=== PATIENT | female | born 1975 | race Caucasian/White ===

== ENCOUNTER → 2017-08-08 | Outpatient (REF) | payer OTHER ==
[2017-08-08 18:22] LABS: MEAN CORPUSCULAR VOLUME 91.3 fl (80.0-96.0); RED CELL DISTRIBUTION WIDTH 12.5 % (11.5-14.5); WHITE BLOOD COUNT 11.3 10^3/uL (4.0-10.0)
[2017-08-08 18:49] LABS: ALBUMIN 3.6 GM/DL (3.2-5.2); ALBUMIN/GLOBULIN RATIO 1.03 (1.00-1.93); ALKALINE PHOSPHATASE 79 U/L (45-117); ALT/SGPT 17 U/L (12-78); ANION GAP 5 MEQ/L (8-16); AST/SGOT 7 U/L (15-37); BILIRUBIN,TOTAL 0.3 MG/DL (0.2-1.0); BLOOD UREA NITROGEN 13 MG/DL (7-18); CALCIUM LEVEL 8.7 MG/DL (8.5-10.1); CARBON DIOXIDE LEVEL 31 MEQ/L (21-32); CHLORIDE LEVEL 106 MEQ/L (98-107); CREATININE FOR GFR 0.84 MG/DL (0.55-1.02); FREE T4 1.11 NG/DL (0.76-1.46); GLOMERULAR FILTRATION RATE > 60.0 (>58); GLUCOSE, FASTING 73 MG/DL (70-105); SODIUM LEVEL 142 MEQ/L (136-145); TOTAL PROTEIN 7.1 GM/DL (6.4-8.2)
== END ==
LOC: M SFHCLERA 13:33
PROVIDERS: ATTEND Family Medicine
DX: F41.9 Anxiety disorder, unspecified (principal); A64 Unspecified sexually transmitted disease; B37.9 Candidiasis, unspecified; R63.4 Abnormal weight loss

== ENCOUNTER 2018-11-09 10:10 | Emergency (ER) | payer MEDICAID, OTHER ==
[~2018-11-09] VITALS: Ht 167.6 cm; Wt 68.2 kg
[2018-11-09] MEDS ORDERED: diazePAM 5 MG TAB PO ONE (10:45)
[2018-11-09] MEDS ORDERED: KETOROLAC 60 MG/2 ML VIAL (J1885) IM ONE (10:45)
--- NOTE | 2018-11-09 10:56 | REP ---
Head CT without contrast: History: None onset severe left sided headache. Comparison study: Comparison head CT study November 29, 2013. CT findings: Bone window settings demonstrate an intact bony calvarium. There is no evidence of skull fracture or incidental bony calvarial lesion. The visualized paranasal sinuses appear clear. No intraorbital abnormality is seen. On soft tissue window setting images; the lateral, third, and fourth ventricles are normal in size and position. Escobar-white differentiation pattern is normal above and below the tentorium. There are is no evidence of intracranial hemorrhage. No mass, edema, infarction, or midline shift is seen. No extra-axial fluid collection is appreciated. Impression: Negative noncontrast head CT. Electronically Signed by Rahat Hayes MD 11/09/2018 10:47 A
[2018-11-09] MEDS ORDERED: ROBA500T PO (12:02)
[2018-11-09] MEDS ORDERED: IBUP-1022 PO (12:02)
[2018-11-09 12:11] VITALS: BP 112/67
== END 2018-11-09 12:12 | disposition home or self-care (01) ==
LOC: M ED 10:10
DX: G44.209 Tension-type headache, unspecified, not intractable (principal); S16.1XXA Strain of muscle, fascia and tendon at neck level, initial encounter; X58.XXXA Exposure to other specified factors, initial encounter; Y92.9 Unspecified place or not applicable; Y93.9 Activity, unspecified; Y99.9 Unspecified external cause status; Z72.0 Tobacco use
CPT/HCPCS: 70450; 96372; 99283; J1885

== ENCOUNTER 2018-11-13 10:25 | Day surgery (SDC) | payer OTHER ==
[~2018-11-13] VITALS: Ht 167.6 cm; Wt 75.0 kg
[~2018-11-13 10:25] MED LIST: IBUP-1022 PO; ROBA500T PO
[2018-11-13] MEDS ORDERED: ONDANSETRON 4MG/2ML VIAL (J2405) IV ONE ×2 (10:45→16:00)
[2018-11-13] MEDS ORDERED: NS 1,000 ML IV ONE ×2 (10:45→13:30)
[2018-11-13 10:58] LABS: BASO # 0.1 10^3/uL (0.0-0.2); BASO % 0.7 % (0.0-1.0); EOS # 0.3 10^3/uL (0.0-0.50); EOS % 1.8 % (0.0-3.0); HEMATOCRIT 43.9 % (36.0-47.0); MEAN CORPUSCULAR HEMOGLOBIN 30.7 pg (27.0-33.0); MEAN CORPUSCULAR HGB CONC 34.2 g/dl (32.0-36.5); MONO % 5.5 % (0.0-5.0); NEUTROPHILS # 14.6 10^3/uL (1.8-7.7); NEUTROPHILS % 80.4 % (36.0-66.0); PLATELET COUNT, AUTOMATED 334 10^3/uL (150-450); RED BLOOD COUNT 4.88 10^6/uL (4.00-5.40); WHITE BLOOD COUNT 18.1 10^3/uL (4.0-10.0)
[2018-11-13 11:22] LABS: ALBUMIN 3.5 GM/DL (3.2-5.2); ALT/SGPT 21 U/L (12-78); AMYLASE 29 U/L (25-115); BILIRUBIN,DIRECT < 0.1 MG/DL (0.0-0.2); BILIRUBIN,TOTAL 0.2 MG/DL (0.2-1.0); BLOOD UREA NITROGEN 13 MG/DL (7-18); CALCIUM LEVEL 8.5 MG/DL (8.5-10.1); CARBON DIOXIDE LEVEL 23 MEQ/L (21-32); CHLORIDE LEVEL 109 MEQ/L (98-107); CREATININE FOR GFR 0.76 MG/DL (0.55-1.30); GLOMERULAR FILTRATION RATE > 60.0 (>58); GLUCOSE, FASTING 103 MG/DL (70-100); LIPASE 172 U/L (73-393); POTASSIUM SERUM 4.3 MEQ/L (3.5-5.1); SODIUM LEVEL 139 MEQ/L (136-145); TOTAL PROTEIN 6.9 GM/DL (6.4-8.2)
[2018-11-13 11:24] LABS: HCG, SERUM QUALITATIVE NEGATIVE (NEGATIVE)
[2018-11-13] MEDS: MORPHINE 2 MG/ML 1ML SYRINGE (J2270) IV PRN ×2 (12:23→13:44)
[2018-11-13] MEDS ORDERED: ISOVUE-370 76% 100ML VIAL (Q9967) As Ordered ONE (12:24)
--- NOTE | 2018-11-13 13:02 | REP ---
CT abdomen and pelvis with IV but without oral contrast: History: Right upper quadrant pain. Comparison CT study: November 09, 2011. CT contrast dose: 100 mL of intravenous Isovue [address] findings: Preliminary digital ore fielder radiograph is normal. The lung bases are clear on axial CT images. The liver and the spleen are normal in size homogeneous in texture. No abnormality is noted in the gallbladder. Pancreas is unremarkable. No adrenal lesion is seen on either side. There is profound atrophy of the left kidney again noted with a tiny streak of residual renal tissue. There is a small cyst associated with this measuring 1.2 cm in diameter. There is also compensatory hypertrophy of the right kidney as seen previously. No hydronephrosis is seen. No retroperitoneal mass or adenopathy is observed. A normal appendix is again noted. Small and large intestinal bowel loops are unremarkable. No uterine abnormality or ovarian abnormality is observed. Urinary bladder is intact. No abdominal wall defect is seen. Impression: No acute abnormality. Marked atrophy again noted in the left kidney with compensatory hypertrophy of the right. No gallbladder abnormality seen by CT. Electronically Signed by Rahat Hayes MD 11/13/2018 07:26 P
[2018-11-13] MEDS ORDERED: PROMETHAZINE INJ 25 MG/ML VIAL (J2550) IV ONE (13:30)
--- NOTE | 2018-11-13 15:02 | REP ---
RIGHT QUADRANT SONOGRAPHY: HISTORY: Pain. FINDINGS: Scanning through right upper quadrant of the abdomen demonstrates tenderness to scanning over the gallbladder. The gallbladder contains multiple shadowing stones. Gallbladder wall is not visibly thickened, 0.3 cm. The gallbladder is somewhat dilated however measuring 11.6 cm in greatest diameter. Common bile duct is at the upper range of normal measuring 0.8 cm in greatest diameter. No intrahepatic ductal dilation is observed. No focal liver lesion. Pancreas is largely obscured by abdominal gas. The right kidney is enlarged measuring 14.9 x 7.0 x 6.4 cm. This is consistent with compensatory enlargement. There is very mild right-sided hydronephrosis. There is no evidence of ascites. IMPRESSION: Somewhat distended gallbladder containing multiple shadowing calculi. There is tenderness to scanning over the gallbladder which may reflect cholecystitis. CBD borderline at 0.8 cm. Electronically Signed by Rahat Hayes MD 11/13/2018 07:41 P
[2018-11-13] MEDS ORDERED: HYDROMORPHONE HCL 0.5 MG/ 0.5 ML SYRINGE (J1170 PER 1) IV PRN (16:00)
[2018-11-13] MEDS ORDERED: AMPICILLIN SOD/SULBACTAM SOD 3 GM in D5W MINI-BAG PLUS 100 ML IV ONE (16:00)
[2018-11-13] MEDS ORDERED: ROBA500T PO (16:20)
[2018-11-13] MEDS ORDERED: IBUP1TAB6 PO (16:20)
[2018-11-13] MEDS ORDERED: BUPIVACAINE/EPIN 0.25% 30 ML VIAL As Ordered ONE (17:36)
[2018-11-13] MEDS ORDERED: PROPOFOL 200 MG/20 ML VIAL As Ordered ONE (18:11)
[2018-11-13] MEDS ORDERED: MIDAZOLAM INJ 2 MG/2 ML VIAL (J2250) As Ordered ONE (18:11)
[2018-11-13] MEDS ORDERED: LIDOCAINE 2% INJ 100 MG/5 ML SDV (FOR ANES.) As Ordered ONE ×2 (18:11→18:13)
[2018-11-13] MEDS ORDERED: ROCURONIUM BROMIDE 50 MG/5 ML VIAL As Ordered ONE (18:11)
[2018-11-13] MEDS ORDERED: fentaNYL 100 MCG/2 ML INJECTION (J3010) As Ordered ONE (18:12)
[2018-11-13] MEDS ORDERED: ACETAMINOPHEN TAB 650MG DOSE (2X325MG) PO PRN (18:30)
[2018-11-13] MEDS ORDERED: MORPHINE 4 MG/ML 1ML VIAL/SYRINGE (J2270) IV PRN (18:30)
[2018-11-13] MEDS ORDERED: ONDANSETRON 4MG/2ML VIAL (J2405) IV PRN ×2 (18:30→20:15)
--- NOTE | 2018-11-13 18:53 | HPE ---
DATE OF ADMISSION: 11/13/2018 CHIEF COMPLAINT: Abdominal pain. HISTORY OF PRESENT ILLNESS: The patient is a 42-year-old female who has had intermittent abdominal pains for the past few years. She has had a history of bleeding ulcer in the past. Starting 5 o'clock this morning, she had increased onset of right upper quadrant abdominal pain different from what she has ever experienced previously. She came into emergency room. Denies any nausea or vomiting. No fevers or chills. No acid reflux or heartburn the last few days. No change in medications or diet. In the emergency room (ER), she had an elevated white count of 18,000 as well as signs of likely acute cholecystitis with slightly thickened gallbladder wall and a gallbladder full of stones. Therefore, I was called to evaluate. She denies any trauma to the abdomen. No changes in medications, no changes in diet. She does say that she has had some abdominal difficulties for the past few years, but she knows that there are certain foods that will trigger it, which are usually fatty foods, like chicken wings. Other than that, no other complaints. No previous surgeries to her abdomen. PAST MEDICAL HISTORY: Hyperlipidemia. Tobacco abuse. PAST SURGICAL HISTORY: Tubal ligation. sections. Right breast abscess, drainage. ALLERGIES: None. HOME MEDICATIONS: Please see med record. REVIEW OF SYSTEMS: Pertinent positives and negatives as stated in the history of the present illness. SOCIAL HISTORY: Denies drug or alcohol abuse. Smokes half-a-pack a day. PHYSICAL EXAMINATION: General: Alert and oriented times three. No acute distress. Vital Signs: Temperature 98.9, pulse 75, respirations 16, blood pressure 177/89, pulse oximetry 99% on room air. HEENT: Pupils equally round and react to light and accommodation. Heart: S1, S2, regular rate and rhythm. Lungs: Clear to auscultation bilaterally. Abdomen: Soft, tender to palpation right upper quadrant, localized guarding. Extremities: No clubbing, cyanosis or edema. LABORATORY DATA: White count 18.1, hemoglobin 15, platelets 334. Potassium 4.3, carbon dioxide 23, creatinine 0.76, lactic acid 1.5. Liver enzymes all within normal limits. IMAGING: CT abdomen and pelvis was normal. Ultrasound of the gallbladder shows a distended gallbladder with wall at 0.3 mm, common bile duct at 0.8 mm and multiple stones. There is a positive sonographic Oakes's sign. ASSESSMENT/PLAN: The patient is a 42-year-old female with right upper quadrant pain and leukocytosis. This could be secondary to early acute calculus cholecystitis, possible choledocholithiasis versus passage of stones due to the dilation of the common bile duct. She also does have a history of ulcer disease. This could be a combination of the two, meaning like a gastritis, peptic ulcer disease and cholecystitis. I did explain to her that this could be a combination of problems. However, with her cholelithiasis, severe right upper quadrant pain and leukocytosis, I offered her elective cholecystectomy. She agreed to the procedure. Risks and benefits of procedure not limited to but including bleeding, infection, hernia formation, damage to surrounding structures, need for further surgery were discussed in detail with the patient. Informed consent was obtained, procedure was planned. Postoperatively, I will keep her overnight, make sure that her pain is improved by morning. If so, the plan will be to discharge home first thing in the morning.
[2018-11-13] MEDS ORDERED: ONDANSETRON 4MG/2ML VIAL (J2405) As Ordered ONE (19:04)
[2018-11-13] MEDS ORDERED: KETOROLAC 60 MG/2 ML VIAL (J1885) As Ordered ONE (19:04)
[2018-11-13] MEDS ORDERED: dexameTHASONE 4 MG/ML 1ML VIAL (J1100) As Ordered ONE (19:04)
[2018-11-13] MEDS ORDERED: NEOSTIGMINE 10 MG/10 ML VIAL (J2710) As Ordered ONE (19:33)
[2018-11-13] MEDS ORDERED: GLYCOPYRROLATE INJ 0.2 MG/ML 2 ML VIAL As Ordered ONE (19:33)
--- NOTE | 2018-11-13 20:07 | RO ---
DATE OF PROCEDURE: 11/13/2018 PREOPERATIVE DIAGNOSIS: Acute calculus cholecystitis. POSTOPERATIVE DIAGNOSIS: Acute calculus cholecystitis. PROCEDURE: Laparoscopic cholecystectomy. SURGEON: Dr. Garg RIPENING ROOM HAND: None. ANESTHESIA: General. ESTIMATED BLOOD LOSS: 5. COMPLICATIONS: None. INDICATIONS FOR PROCEDURE: The patient is 42-year female presents with right upper quadrant abdominal pain since early this morning found have acute cholecystitis on ultrasound and labs. Recommendation was to proceed with laparoscopic possible open cholecystectomy. Risks, benefits of procedure not limited but including bleeding, infection, hernia formation, damage surrounding structure need for further surgery were discussed in detail with the patient formed was obtained procedure was planned. PROCEDURE: The patient brought back to operating room two. After sufficient sedation the abdomen sterilely prepped and draped. Next time-out was done to confirm proper patient and proper procedure. Following that a stab incision made in left lower quadrant. A Veress needle was inserted and the abdomen was insufflated to 50 mmHg. Next a 5 mm supraumbilical midline incision was made and a 5 mm Optiview port was used to gain access to the abdomen. Once the abdomen was entered a Veress needle site was examined and there were no signs of any injury. Veress needle was then removed 11 mm port placed subxiphoid. Two 5 mm ports in the right upper quadrant. Fundus of gallbladder was grasped, elevated up towards the right shoulder, cystic duct and cystic artery were carefully dissected free using combination of blunt sharp dissection. The cystic duct was a large and full of stones. I have made a small ductotomy in it and milk does much of stones as possible. Duct was too large to place hemoclips on so I placed two clips and then PDS Endoloop around it. The gallbladder was then removed from gallbladder fossa using electrocautery. It was taken out intact and removed through the subxiphoid port site in a 10 mm EndoCatch bag. The abdomen was examined. The right upper quadrant to confirm hemostasis and the abdomen was then desufflated. Skin incisions closed 4-0 Vicryl subcu sutures. Abdomen was cleaned and dried. Steri-Strips, 4x4 and tape were applied thus ending procedure.
[2018-11-13] MEDS ORDERED: KETOROLAC 30 MG/ML VIAL (J1885) IV PRN (20:15)
[2018-11-13] MEDS ORDERED: LR 1,000 ML IV SCH (20:15)
[2018-11-13] MEDS ORDERED: METOCLOPRAMIDE INJ 10MG/2ML VIAL (J2765) IV PRN (20:15)
[2018-11-13] MEDS ORDERED: fentaNYL 100 MCG/2 ML INJECTION (J3010) IV PRN (20:15)
[2018-11-13] MEDS ORDERED: PERCOCET 5MG/325MG TAB PO PRN (20:15)
[2018-11-13] MEDS ORDERED: SUCRALFATE 1 GM TAB PO SCH (21:00)
[2018-11-13 21:20] VITALS: BP 160/78
[2018-11-13] MEDS ORDERED: hydroCHLOROthiazide 12.5 MG CAPSULE PO ONE (21:45)
[2018-11-13 21:50] VITALS: BP 158/80
[2018-11-13] MEDS: NS 1,000 ML IV SCH (21:55)
[2018-11-13] MEDS: PIPERACILLIN/TAZOBACTAM SOD 3.375 GM in D5W MINI-BAG PLUS 50 ML IV SCH (22:27)
[2018-11-13] MEDS: SENOKOT S TAB PO SCH (22:27)
[2018-11-13 22:50] VITALS: BP 138/90
[2018-11-13 23:50] VITALS: BP 130/84
[2018-11-14] MEDS: NORCO, ANEXSIA 5/325MG TABLET (HYDROcodone/ACETAMINOPHEN) PO PRN ×4 (00:06→20:20)
[2018-11-14 00:50] VITALS: BP 139/80
[2018-11-14 01:50] VITALS: BP 137/79
[2018-11-14] MEDS: NS 1,000 ML IV SCH ×4 (04:07→23:23)
[2018-11-14] MEDS: PIPERACILLIN/TAZOBACTAM SOD 3.375 GM in D5W MINI-BAG PLUS 50 ML IV SCH ×4 (04:07→22:14)
[2018-11-14 06:00] VITALS: BP 144/83
[2018-11-14 06:08] LABS: HEMATOCRIT 38.3 % (36.0-47.0); HEMOGLOBIN 13.1 g/dl (12.0-15.5); MEAN CORPUSCULAR HGB CONC 34.2 g/dl (32.0-36.5); MEAN CORPUSCULAR VOLUME 90.5 fl (80.0-96.0); PLATELET COUNT, AUTOMATED 314 10^3/uL (150-450); RED BLOOD COUNT 4.23 10^6/uL (4.00-5.40); WHITE BLOOD COUNT 24.3 10^3/uL (4.0-10.0)
[2018-11-14 06:36] LABS: ALBUMIN 2.7 GM/DL (3.2-5.2); ALT/SGPT 44 U/L (12-78); BILIRUBIN,TOTAL 0.4 MG/DL (0.2-1.0); BLOOD UREA NITROGEN 5 MG/DL (7-18); CARBON DIOXIDE LEVEL 23 MEQ/L (21-32); CHLORIDE LEVEL 104 MEQ/L (98-107); CREATININE FOR GFR 0.81 MG/DL (0.55-1.30); GLOMERULAR FILTRATION RATE > 60.0 (>58); GLUCOSE, FASTING 165 MG/DL (70-100); SODIUM LEVEL 137 MEQ/L (136-145); TOTAL PROTEIN 6.1 GM/DL (6.4-8.2)
[2018-11-14] MEDS: PANTOPRAZOLE 40MG TAB (PROTONIX) PO SCH (08:26)
[2018-11-14] MEDS: SENOKOT S TAB PO SCH ×2 (08:26→20:20)
[2018-11-14] MEDS ORDERED: ENOXAPARIN 40 MG/0.4 ML SYRINGE (J1650) SC SCH (09:00)
--- NOTE | 2018-11-14 10:46 | IPNPDOC ---
Text Note Date of Service The patient was seen on 11/14/18. NOTE No acute events overnight. Her abd pain is much improved. Denies nausea, emesis, or fevers. VSSAF NAD abd - soft, nd, TTP appropriate, dressings c/d/i labs - below A) 42y/o female s/p lap [place] for acute calculous cholecystitis leukocytosis secondary to above P) reg diet abx ambulate will check labs again at noon today to see if they are improving. If not, then I will get an MRCP to evaluate for possible cholangitis. Stevie Garg DO VS,Fishbone, I+O VS, Fishbone, I+O Laboratory Tests 11/14/18 05:39 Red Blood Count 4.23, Mean Corpuscular Volume 90.5, Mean Corpuscular Hemoglobin 31.0, Mean Corpuscular Hemoglobin Concent 34.2, Red Cell Distribution Width 12.2, Calcium Level 8.0 L, Aspartate Amino Transf (AST/SGOT) 37, Alanine Aminotransferase (ALT/SGPT) 44, Alkaline Phosphatase 62, Total Bilirubin 0.4 #, Total Protein 6.1 L, Albumin 2.7 #L Vital Signs Date Time Temp Pulse Resp B/P (MAP) Pulse Ox O2 Delivery O2 Flow Rate FiO2 11/14/18 08:20 15 11/14/18 06:00 98.4 91 144/83 (103) 95 11/14/18 01:50 Room Air 11/13/18 19:55 2 I&O- Last 24 Hours up to 6 AM 11/14/18 05:59 Intake Total 1610 ml Output Total 605 ml Balance 1005 ml KEVIN GARG DO Nov 14, 2018 10:46
[2018-11-14 12:29] LABS: HEMATOCRIT 40.5 % (36.0-47.0); HEMOGLOBIN 14.1 g/dl (12.0-15.5); MEAN CORPUSCULAR HEMOGLOBIN 31.4 pg (27.0-33.0); MEAN CORPUSCULAR HGB CONC 34.8 g/dl (32.0-36.5); MEAN CORPUSCULAR VOLUME 90.2 fl (80.0-96.0); PLATELET COUNT, AUTOMATED 323 10^3/uL (150-450); RED BLOOD COUNT 4.49 10^6/uL (4.00-5.40); WHITE BLOOD COUNT 21.7 10^3/uL (4.0-10.0)
[2018-11-14 14:00] VITALS: BP 159/91
[2018-11-14] MEDS: KETOROLAC 30 MG/ML VIAL (J1885) IV PRN ×2 (15:48→23:19)
[2018-11-14 22:00] VITALS: BP 138/82
[2018-11-15] MEDS: PIPERACILLIN/TAZOBACTAM SOD 3.375 GM in D5W MINI-BAG PLUS 50 ML IV SCH (03:51)
[2018-11-15] MEDS: NORCO, ANEXSIA 5/325MG TABLET (HYDROcodone/ACETAMINOPHEN) PO PRN (05:47)
[2018-11-15 05:53] LABS: HEMOGLOBIN 12.4 g/dl (12.0-15.5); MEAN CORPUSCULAR HEMOGLOBIN 30.8 pg (27.0-33.0); MEAN CORPUSCULAR HGB CONC 34.4 g/dl (32.0-36.5); MEAN CORPUSCULAR VOLUME 89.3 fl (80.0-96.0); PLATELET COUNT, AUTOMATED 256 10^3/uL (150-450); RED BLOOD COUNT 4.03 10^6/uL (4.00-5.40); WHITE BLOOD COUNT 14.6 10^3/uL (4.0-10.0)
[2018-11-15 06:00] VITALS: BP 127/83
[2018-11-15 06:14] LABS: ALBUMIN 2.5 GM/DL (3.2-5.2); ALT/SGPT 45 U/L (12-78); BILIRUBIN,TOTAL 0.3 MG/DL (0.2-1.0); BLOOD UREA NITROGEN 12 MG/DL (7-18); CALCIUM LEVEL 7.4 MG/DL (8.5-10.1); CARBON DIOXIDE LEVEL 26 MEQ/L (21-32); CHLORIDE LEVEL 106 MEQ/L (98-107); CREATININE FOR GFR 0.64 MG/DL (0.55-1.30); GLOMERULAR FILTRATION RATE > 60.0 (>58); GLUCOSE, FASTING 91 MG/DL (70-100); POTASSIUM SERUM 3.2 MEQ/L (3.5-5.1); SODIUM LEVEL 140 MEQ/L (136-145); TOTAL PROTEIN 5.7 GM/DL (6.4-8.2)
[2018-11-15] MEDS ORDERED: NORCOTAB PO (07:34)
[2018-11-15] MEDS: SENOKOT S TAB PO SCH (08:51)
[2018-11-15] MEDS: PANTOPRAZOLE 40MG TAB (PROTONIX) PO SCH (08:51)
--- NOTE | 2018-11-16 09:20 | DSES ---
DATE OF ADMISSION: 11/13/2018 DATE OF DISCHARGE: 11/15/2018 ADMISSION DIAGNOSIS: Acute calculus cholecystitis. DISCHARGE DIAGNOSIS: Acute calculus cholecystitis. HOSPITAL COURSE: Patient is a 42-year-old female who presented on 11/13/2018 with severe upper abdominal pains found to have acute calculus cholecystitis. She was brought to the operating room in the evening for a laparoscopic cholecystectomy. Postoperatively, her pain was still present but improved. However, her white count increased significantly overnight. No problems with any fevers. Liver function tests (LFTs) were all normal. However, due to the increased white count, I decided to keep her the first day to evaluate her. Repeated labs 6 hours later white count was already trending downwards. Therefore, I was less concerned about cholangitis or other problems. Just because of the pain control and the white count still being over 20, I kept her overnight. Postop day #2, her white count came down to 14. Her pain was improved. She was tolerating diet. LFTs were still normal. Vital signs were normal. Plan was to discharge her home and have her followup with me in the office in 2 weeks. She was given a prescription for pain control to go home with. No antibiotics. I feel that her white count was mainly reactive due to the severe inflammation from all of the stones that she had and less likely infectious process. She can shower today. No lifting, pushing or pulling more than 20 pounds. No baths for 5 days, and she can return to work whenever she is ready.
== END 2018-11-15 09:28 | disposition home or self-care (01) ==
LOC: M ED 10:25 → M SDC 16:16 → M MSPAV 21:16 → M SDC 11-15 09:28
PROVIDERS: ATTEND Surgery
DX: K80.18 Calculus of gallbladder with other cholecystitis without obstruction (principal); E78.5 Hyperlipidemia, unspecified; D72.829 Elevated white blood cell count, unspecified; F17.210 Nicotine dependence, cigarettes, uncomplicated
CPT/HCPCS: 36415; 47562; 76705; 80048; 80053; 80076; 82150; 83605; 83690; 84703; 85025; 85027; 87040; 88304; 93041; 96365; 96366; 96372; 96375; 96376; 99285; J1100; J1170; J1650; J1885; J2250; J2270; J2405; J2543; J2710; J2765; J3010; Q9967

== ENCOUNTER 2019-01-05 12:53 | Emergency (ER) | payer OTHER ==
[~2019-01-05] VITALS: Ht 167.6 cm; Wt 70.0 kg
[~2019-01-05 12:53] MED LIST changes: +IBUP1TAB6 PO; +NORCOTAB PO
[2019-01-05 12:54] VITALS: BP 132/80
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
[2019-01-05] MEDS ORDERED: IBUP-1022 PO (13:44)
== END 2019-01-05 14:11 | disposition home or self-care (01) ==
LOC: M ED 12:53
DX: S49.92XA Unspecified injury of left shoulder and upper arm, initial encounter (principal); X58.XXXA Exposure to other specified factors, initial encounter; Y92.018 Other place in single-family (private) house as the place of occurrence of the external cause; F17.210 Nicotine dependence, cigarettes, uncomplicated

== ENCOUNTER 2020-07-01 10:56 | Emergency (ER) | payer OTHER, SELFPAY ==
[~2020-07-01] VITALS: Ht 167.6 cm; Wt 69.0 kg
[~2020-07-01 10:56] MED LIST changes: +HYDR-3715 PO; -NORCOTAB PO
[2020-07-01 10:57] VITALS: BP 114/66
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
== END 2020-07-01 12:04 | disposition left against medical advice (07) ==
LOC: M ED 10:56
DX: S19.9XXA Unspecified injury of neck, initial encounter (principal); Y04.8XXA Assault by other bodily force, initial encounter; Y92.019 Unspecified place in single-family (private) house as the place of occurrence of the external cause; Z53.9 Procedure and treatment not carried out, unspecified reason; F17.210 Nicotine dependence, cigarettes, uncomplicated

== ENCOUNTER 2020-12-02 16:06 | Emergency (ER) | payer OTHER ==
[~2020-12-02] VITALS: Ht 167.6 cm; Wt 72.4 kg
[2020-12-02 16:06] VITALS: BP 147/83
--- NOTE | 2020-12-02 16:43 | REP ---
INDICATION: deformity distal tip third digit right hand. COMPARISON: None TECHNIQUE: Four views the 3rd digit. FINDINGS: No acute fracture or destructive osseous lesion. The DIP joint is flexed on all views. IMPRESSION: As above <Electronically signed by Chetan Lantigua > 12/02/20 [id number]
== END 2020-12-02 17:18 | disposition home or self-care (01) ==
LOC: M ED 16:06
DX: M20.031 Swan-neck deformity of right finger(s) (principal); X50.0XXA Overexertion from strenuous movement or load, initial encounter; Y92.019 Unspecified place in single-family (private) house as the place of occurrence of the external cause; Y93.89 Activity, other specified; Y99.9 Unspecified external cause status

== ENCOUNTER → 2023-06-07 | Outpatient (CLI) | payer OTHER | LOC: M RAD 11:53 | PROVIDERS: ATTEND Physician Assistant | DX: E04.2 Nontoxic multinodular goiter (principal) ==

== ENCOUNTER 2024-01-15 13:18 | Emergency (ER) | payer OTHER ==
[~2024-01-15] VITALS: Ht 167.6 cm; Wt 66.1 kg
[2024-01-15 13:18] VITALS: BP 123/72; TEMP 97.8; O2SAT 99
== END 2024-01-15 13:56 | disposition left against medical advice (07) ==
LOC: M ED 13:18
DX: Z53.21 Procedure and treatment not carried out due to patient leaving prior to being seen by health care provider (principal)

== ENCOUNTER 2025-07-17 21:51 | Emergency (ER) | payer OTHER ==
[~2025-07-17] VITALS: Ht 167.6 cm; Wt 66.8 kg
[~2025-07-17 21:51] MED LIST changes: -IBUP-1022 PO; -IBUP1TAB6 PO; +IBUP600T42 PO; +SFHIBU600 PO
[2025-07-17] MEDS ORDERED: DOXY-441 PO (22:43)
[2025-07-17] MEDS: DOXYCYCLINE HYCLATE 100 MG TABLET PO ONE (22:52)
[2025-07-17 22:53] VITALS: BP 132/73; TEMP 97.2; O2SAT 100
== END 2025-07-17 22:54 | disposition home or self-care (01) ==
LOC: M ED 21:51
DX: L03.311 Cellulitis of abdominal wall (principal); Z79.2 Long term (current) use of antibiotics